=== PATIENT | male | born 1995 | race Caucasian/White ===

== ENCOUNTER 2020-04-10 11:22 | Inpatient (IN) | payer MEDICAID, OTHER ==
[~2020-04-10] VITALS: Ht 170.2 cm; Wt 60.3 kg
[2020-04-10 11:52] LABS: BASOPHILS % (AUTO) 0.4 % (0.0-2.0); EOSINOPHILS % (AUTO) 0.4 % (1.0-6.0); HEMOGLOBIN 13.6 g/dL (13.5-17.5); LYMPHOCYTES # (AUTO) 2.2 K/uL (1.0-4.8); LYMPHOCYTES % (AUTO) 32.1 % (22.0-44.0); MEAN CORPUSCULAR HEMOGLOBIN 29.9 pg (26.0-34.0); MEAN CORPUSCULAR VOLUME 88 fL (80-100); MONOCYTES # (AUTO) 0.6 K/uL (0.1-1.0); MONOCYTES % (AUTO) 9.2 % (2.0-9.0); NEUTROPHILS % (AUTO) 57.9 % (40.0-70.0); PLATELET COUNT (AUTO) 293 K/uL (150-450); RED BLOOD CELL COUNT(AUTO) 4.54 MIL/uL (4.50-5.90); RED CELL DISTRIBUTION WIDTH 14.1 % (11.5-14.5)
[2020-04-10 11:57] LABS: ANION GAP 10 mmol/L (8-16); CALCIUM, TOTAL 9.6 mg/dL (8.8-10.5); CARBON DIOXIDE 28 mmol/L (22-29); CHLORIDE 101 mmol/L (98-107); GLOMERULAR FILTR. RATE CALC > 60 mL/min (>60); GLUCOSE,RANDOM 108 mg/dL (70-110); POTASSIUM 3.7 mmol/L (3.5-5.1); SODIUM SERUM 139 mmol/L (136-145); UREA NITROGEN, BLOOD 14 mg/dL (7-18)
[2020-04-10 12:02] LABS: ALANINE AMINOTRANSFERASE 24 U/L (12-78); ALBUMIN 4.5 g/dL (3.4-5.0); ALKALINE PHOSPHATASE 58 U/L (46-116); ASPARTATE AMINOTRANSFERASE 18 U/L (15-37); BILIRUBIN,TOTAL 0.6 mg/dL (0.1-1.0); TOTAL PROTEIN, SERUM 8.6 g/dL (6.4-8.2)
[2020-04-10 12:28] LABS: AMPHET/METH SCREEN,URINE NEGATIVE (NEGATIVE); BARBITURATE SCREEN, URINE NEGATIVE (NEGATIVE); BENZODIAZEPINES SCREEN,URINE NEGATIVE (NEGATIVE); CANNABINOID SCREEN,URINE POSITIVE (NEGATIVE); COCAINE SCREEN,URINE NEGATIVE (NEGATIVE); METHADONE SCREEN, URINE NEGATIVE (NEGATIVE); OPIATE SCREEN,URINE NEGATIVE (NEGATIVE)
[2020-04-10 12:31] LABS: PHENCYCLIDINE SCREEN,URINE NEGATIVE (NEGATIVE)
[2020-04-10] MEDS ORDERED: HALOPERIDOL 5 MG TABLET PO PRN (13:15)
[2020-04-10] MEDS ORDERED: LORazepam 2 MG TABLET PO PRN (13:15)
[2020-04-10 18:10] VITALS: BP 101/51
[2020-04-11 05:43] VITALS: BP 112/71
[2020-04-11] MEDS ORDERED: BACITRACIN 28.4 GM OINTMENT TP PRN (06:45)
[2020-04-11] MEDS ORDERED: MAG HYDROX/AL HYDROX/SIMETH ES 30 ML SUSPENSION UDCUP PO PRN (06:45)
[2020-04-11] MEDS ORDERED: ALBUTEROL SULFATE HFA 90 MCG/PUFF 8 GM INHALER IH PRN (06:45)
[2020-04-11] MEDS ORDERED: OMEPRAZOLE 20 MG CAPSULE PO PRN (06:45)
[2020-04-11] MEDS ORDERED: MAGNESIUM HYDROXIDE SUSPENSION 30 ML UDCUP PO PRN (06:45)
[2020-04-11] MEDS ORDERED: ACETAMINOPHEN 325 MG TABLET PO PRN (06:45)
[2020-04-11] MEDS ORDERED: PETROLATUM,WHITE 28 GM JELLY TP PRN (06:45)
[2020-04-11] MEDS ORDERED: DOCUSATE SODIUM 100 MG CAPSULE PO PRN (06:45)
[2020-04-11] MEDS ORDERED: LOPERAMIDE HCL 2 MG CAPSULE PO PRN (06:45)
[2020-04-11] MEDS ORDERED: IBUPROFEN 600 MG TABLET PO PRN (06:45)
[2020-04-11] MEDS ORDERED: BENZOCAINE/MENTHOL LOZENGE MM PRN (06:45)
[2020-04-11] MEDS ORDERED: ONDANSETRON HCL 4 MG TABLET PO PRN (06:45)
[2020-04-11] MEDS ORDERED: CloNIDine HCL 0.1 MG TABLET PO PRN (06:45)
[2020-04-11 08:26] LABS: CHOL/HDL RATIO 2.6 (4.2-7.3)
[2020-04-11 08:30] VITALS: BP 130/72
[2020-04-11 16:17] VITALS: BP 139/72
[2020-04-11] MEDS ORDERED: RisperiDONE 2 MG TABLET PO SCH (17:00)
[2020-04-11] MEDS: LURASIDONE HCL 60 MG TABLET PO SCH (20:56)
[2020-04-11] MEDS: ZOLPIDEM TARTRATE 10 MG TABLET PO PRN (22:22)
[2020-04-12 05:56] VITALS: BP 128/75
[2020-04-12 08:24] VITALS: BP 132/70
[2020-04-12 16:10] VITALS: BP 118/80
[2020-04-12] MEDS: ZOLPIDEM TARTRATE 10 MG TABLET PO PRN (20:41)
[2020-04-12] MEDS: LURASIDONE HCL 60 MG TABLET PO SCH (20:41)
[2020-04-13 05:30] VITALS: BP 119/79
[2020-04-13 08:24] VITALS: BP 123/62
[2020-04-13 16:11] VITALS: BP 129/76
[2020-04-13] MEDS: LURASIDONE HCL 60 MG TABLET PO SCH (20:44)
[2020-04-13] MEDS: ZOLPIDEM TARTRATE 10 MG TABLET PO PRN (20:47)
[2020-04-14 04:22] VITALS: BP 133/78
[2020-04-14 08:22] VITALS: BP 124/71
[2020-04-14] MEDS ORDERED: LURA60TA PO (14:08)
== END 2020-04-14 16:45 | disposition home or self-care (01) | DRG 885 ==
LOC: EMS 11:26 → B2S 16:24 → B3A 18:30
PROVIDERS: ADMIT Psychiatry & Neurology Psychiatry; ATTEND Psychiatry & Neurology Psychiatry
DX: F25.1 Schizoaffective disorder, depressive type (principal); F12.90 Cannabis use, unspecified, uncomplicated; F17.210 Nicotine dependence, cigarettes, uncomplicated; F41.9 Anxiety disorder, unspecified; G47.00 Insomnia, unspecified; K59.00 Constipation, unspecified; Z79.899 Other long term (current) drug therapy
CPT/HCPCS: 87081; G0480

== ENCOUNTER 2020-04-23 22:15 | Inpatient (IN) | payer MEDICAID ==
[~2020-04-23] VITALS: Ht 167.6 cm; Wt 59.9 kg
[~2020-04-23 22:15] MED LIST: LURA60TA PO
[2020-04-23 23:00] VITALS: BP 111/63
[2020-04-24 00:17] VITALS: BP 130/77
[2020-04-24] MEDS: ZOLPIDEM TARTRATE 10 MG TABLET PO PRN ×2 (00:55→22:07)
[2020-04-24 04:42] VITALS: BP 119/76
[2020-04-24] MEDS: LORazepam 2 MG TABLET PO PRN ×2 (04:43→17:41)
[2020-04-24] MEDS ORDERED: LOPERAMIDE HCL 2 MG CAPSULE PO PRN (06:45)
[2020-04-24] MEDS ORDERED: ALBUTEROL SULFATE HFA 90 MCG/PUFF 8 GM INHALER IH PRN (06:45)
[2020-04-24] MEDS ORDERED: ONDANSETRON HCL 4 MG TABLET PO PRN (06:45)
[2020-04-24] MEDS ORDERED: BENZOCAINE/MENTHOL LOZENGE MM PRN (06:45)
[2020-04-24] MEDS ORDERED: PETROLATUM,WHITE 28 GM JELLY TP PRN (06:45)
[2020-04-24] MEDS ORDERED: BACITRACIN 28.4 GM OINTMENT TP PRN (06:45)
[2020-04-24] MEDS ORDERED: CloNIDine HCL 0.1 MG TABLET PO PRN (06:45)
[2020-04-24] MEDS ORDERED: OMEPRAZOLE 20 MG CAPSULE PO PRN (06:45)
[2020-04-24] MEDS ORDERED: MAG HYDROX/AL HYDROX/SIMETH ES 30 ML SUSPENSION UDCUP PO PRN (06:45)
[2020-04-24] MEDS ORDERED: ACETAMINOPHEN 325 MG TABLET PO PRN (06:45)
[2020-04-24] MEDS ORDERED: MAGNESIUM HYDROXIDE SUSPENSION 30 ML UDCUP PO PRN (06:45)
[2020-04-24] MEDS ORDERED: DOCUSATE SODIUM 100 MG CAPSULE PO PRN (06:45)
[2020-04-24 09:46] VITALS: BP 114/68
[2020-04-24 16:32] VITALS: BP 118/75
[2020-04-24] MEDS: LURASIDONE HCL 80 MG TABLET PO SCH (20:32)
[2020-04-24] MEDS ORDERED: LURASIDONE HCL 60 MG TABLET PO SCH (21:00)
[2020-04-25 00:13] VITALS: BP 120/76
[2020-04-25] MEDS: LORazepam 2 MG TABLET PO PRN ×2 (00:28→22:08)
[2020-04-25 07:53] LABS: BASOPHILS % (AUTO) 0.4 % (0.0-2.0); EOSINOPHILS % (AUTO) 0.3 % (1.0-6.0); HEMATOCRIT 40.8 % (41-53); HEMOGLOBIN 13.7 g/dL (13.5-17.5); LYMPHOCYTES # (AUTO) 1.4 K/uL (1.0-4.8); LYMPHOCYTES % (AUTO) 38.7 % (22.0-44.0); MEAN CORPUSCULAR HGB CONC 33.5 G/dL (31.0-37.0); MEAN CORPUSCULAR VOLUME 89 fL (80-100); MONOCYTES # (AUTO) 0.4 K/uL (0.1-1.0); MONOCYTES % (AUTO) 12.7 % (2.0-9.0); NEUTROPHILS # (AUTO) 1.7 K/uL (1.8-7.7); NEUTROPHILS % (AUTO) 47.9 % (40.0-70.0); PLATELET COUNT (AUTO) 281 K/uL (150-450); RED BLOOD CELL COUNT(AUTO) 4.57 MIL/uL (4.50-5.90); RED CELL DISTRIBUTION WIDTH 14.8 % (11.5-14.5)
[2020-04-25 08:20] LABS: ALANINE AMINOTRANSFERASE 29 U/L (12-78); ALBUMIN 4.4 g/dL (3.4-5.0); ALKALINE PHOSPHATASE 47 U/L (46-116); ANION GAP 6 mmol/L (8-16); ASPARTATE AMINOTRANSFERASE 19 U/L (15-37); BILIRUBIN,TOTAL 0.5 mg/dL (0.1-1.0); CALCIUM, TOTAL 9.9 mg/dL (8.8-10.5); CARBON DIOXIDE 29 mmol/L (22-29); CHLORIDE 102 mmol/L (98-107); CHOLESTEROL 127 mg/dL (131-200); CREATININE 1.14 mg/dL (0.60-1.30); GLOMERULAR FILTR. RATE CALC > 60 mL/min (>60); GLUCOSE,RANDOM 95 mg/dL (70-110); HDL CHOLESTEROL 64 mg/dL (40-60); HEMOGLOBIN A1C 5.6 % (3.8-5.6); LDL CHOL (CALC.) 54 mg/dL (0-130); SODIUM SERUM 137 mmol/L (136-145); THYROID STIMULATING HORMONE 1.82 uIU/mL (0.36-3.74); TOTAL PROTEIN, SERUM 8.3 g/dL (6.4-8.2); TRIGLYCERIDES 44 mg/dL (15-150); UREA NITROGEN, BLOOD 14 mg/dL (7-18)
[2020-04-25 09:49] VITALS: BP 130/67
[2020-04-25] MEDS: LURASIDONE HCL 80 MG TABLET PO SCH (20:12)
[2020-04-25] MEDS: ZOLPIDEM TARTRATE 10 MG TABLET PO PRN (20:13)
[2020-04-25 21:48] VITALS: BP 133/72
[2020-04-26 01:38] VITALS: BP 122/70
[2020-04-26 08:17] VITALS: BP 133/75
[2020-04-26] MEDS: LORazepam 2 MG TABLET PO PRN ×2 (12:42→17:10)
[2020-04-26] MEDS: HALOPERIDOL 5 MG TABLET PO PRN (12:42)
[2020-04-26 16:27] VITALS: BP 127/79
[2020-04-26] MEDS: LURASIDONE HCL 80 MG TABLET PO SCH (20:57)
[2020-04-26] MEDS: ZOLPIDEM TARTRATE 10 MG TABLET PO PRN (20:57)
[2020-04-27 02:20] VITALS: BP 122/77
[2020-04-27] MEDS: HALOPERIDOL 5 MG TABLET PO PRN (05:48)
[2020-04-27] MEDS: LORazepam 2 MG TABLET PO PRN (05:48)
[2020-04-27 08:34] VITALS: BP 119/73
[2020-04-27] MEDS: IBUPROFEN 600 MG TABLET PO PRN (13:37)
[2020-04-27 13:38] VITALS: BP 130/78
[2020-04-27 14:32] VITALS: BP 126/72
[2020-04-27 16:10] VITALS: BP 114/70
[2020-04-27] MEDS: LURASIDONE HCL 80 MG TABLET PO SCH (20:43)
[2020-04-27] MEDS: ZOLPIDEM TARTRATE 10 MG TABLET PO PRN (20:46)
[2020-04-28 00:41] VITALS: BP 118/76
[2020-04-28] MEDS: LORazepam 2 MG TABLET PO PRN ×4 (02:30→23:46)
[2020-04-28] MEDS: HALOPERIDOL 5 MG TABLET PO PRN ×2 (02:30→23:46)
[2020-04-28] MEDS: IBUPROFEN 600 MG TABLET PO PRN (05:06)
[2020-04-28 08:37] VITALS: BP 122/63
[2020-04-28 09:54] LABS: BILIRUBIN,URINE NEGATIVE (NEGATIVE); GLUCOSE, URINE (UA) NEGATIVE (NEGATIVE); KETONES,URINE NEGATIVE (NEGATIVE); LEUKOCYTE ESTERASE ,URINE NEGATIVE (NEGATIVE); NITRATE,URINE NEGATIVE (NEGATIVE); OCCULT BLOOD,URINE NEGATIVE (NEGATIVE); PH,URINE 6.5 (5.0-8.0); PROTEIN,URINE POS 1+ (NEGATIVE)
[2020-04-28 10:00] LABS: AMPHET/METH SCREEN,URINE NEGATIVE (NEGATIVE); BARBITURATE SCREEN, URINE NEGATIVE (NEGATIVE); BENZODIAZEPINES SCREEN,URINE NEGATIVE (NEGATIVE); CANNABINOID SCREEN,URINE POSITIVE (NEGATIVE); COCAINE SCREEN,URINE NEGATIVE (NEGATIVE); METHADONE SCREEN, URINE NEGATIVE (NEGATIVE); OPIATE SCREEN,URINE NEGATIVE (NEGATIVE); PHENCYCLIDINE SCREEN,URINE NEGATIVE (NEGATIVE)
[2020-04-28 10:14] LABS: APPEARANCE,URINE SLIGHTLY CLOUDY (CLEAR)
[2020-04-28 10:21] LABS: BACTERIA,URINE None Seen /HPF (None Seen); RBC,URINE 0-2 /HPF (0-2); WBC,URINE 0-2 /HPF (0-5)
[2020-04-28 10:22] LABS: CALCIUM OXALATE CRYSTALS,UR Moderate /LPF (None Seen)
[2020-04-28 16:30] VITALS: BP 127/72
[2020-04-28] MEDS: LURASIDONE HCL 80 MG TABLET PO SCH (20:00)
[2020-04-28] MEDS: ZOLPIDEM TARTRATE 10 MG TABLET PO PRN (20:00)
[2020-04-29 01:08] VITALS: BP 122/75
[2020-04-29] MEDS: IBUPROFEN 600 MG TABLET PO PRN (06:45)
[2020-04-29 08:22] VITALS: BP 116/68
[2020-04-29] MEDS: LORazepam 2 MG TABLET PO PRN ×2 (09:16→18:06)
[2020-04-29 16:19] VITALS: BP 121/73
[2020-04-29] MEDS: HALOPERIDOL 5 MG TABLET PO PRN (18:06)
[2020-04-29] MEDS: LURASIDONE HCL 80 MG TABLET PO SCH (20:41)
[2020-04-29] MEDS: ZOLPIDEM TARTRATE 10 MG TABLET PO PRN (20:41)
[2020-04-30 02:24] VITALS: BP 118/70
[2020-04-30 08:06] VITALS: BP 122/76
[2020-04-30] MEDS: LORazepam 2 MG TABLET PO PRN (08:26)
[2020-04-30] MEDS: HALOPERIDOL 5 MG TABLET PO PRN (12:02)
[2020-04-30] MEDS ORDERED: LURA60TA PO (12:18)
== END 2020-04-30 15:15 | disposition home or self-care (01) | DRG 885 ==
LOC: B2S 22:38 → B3A 04-25 16:56
PROVIDERS: ADMIT Psychiatry & Neurology Psychiatry; ATTEND Psychiatry & Neurology Psychiatry
DX: F20.0 Paranoid schizophrenia (principal); F12.90 Cannabis use, unspecified, uncomplicated; G47.00 Insomnia, unspecified; K59.00 Constipation, unspecified; Z91.14 Patient's other noncompliance with medication regimen
CPT/HCPCS: 80307; 83036; 84439; 84443; 87081

== ENCOUNTER 2020-05-01 11:25 | Emergency (ER) | payer MEDICAID, OTHER ==
[~2020-05-01] VITALS: Ht 177.8 cm; Wt 70.5 kg
[2020-05-01 12:00] LABS: BASOPHILS % (AUTO) 0.2 % (0.0-2.0); EOSINOPHILS % (AUTO) 0 % (1.0-6.0); HEMATOCRIT 40.6 % (41-53); HEMOGLOBIN 13.5 g/dL (13.5-17.5); LYMPHOCYTES # (AUTO) 0.9 K/uL (1.0-4.8); LYMPHOCYTES % (AUTO) 10.7 % (22.0-44.0); MEAN CORPUSCULAR HEMOGLOBIN 29.5 pg (26.0-34.0); MEAN CORPUSCULAR HGB CONC 33.2 G/dL (31.0-37.0); MEAN CORPUSCULAR VOLUME 89 fL (80-100); MONOCYTES # (AUTO) 0.6 K/uL (0.1-1.0); MONOCYTES % (AUTO) 7.1 % (2.0-9.0); NEUTROPHILS # (AUTO) 7.1 K/uL (1.8-7.7); PLATELET COUNT (AUTO) 290 K/uL (150-450); RED BLOOD CELL COUNT(AUTO) 4.57 MIL/uL (4.50-5.90); RED CELL DISTRIBUTION WIDTH 14.4 % (11.5-14.5)
[2020-05-01] MEDS ORDERED: LORazepam 1 MG TABLET PO ONE (12:00)
[2020-05-01 12:08] LABS: ANION GAP 8 mmol/L (8-16); CALCIUM, TOTAL 9.8 mg/dL (8.8-10.5); CARBON DIOXIDE 29 mmol/L (22-29); CHLORIDE 101 mmol/L (98-107); CREATININE 1.32 mg/dL (0.60-1.30); GLOMERULAR FILTR. RATE CALC > 60 mL/min (>60); GLUCOSE,RANDOM 114 mg/dL (70-110); POTASSIUM 4.8 mmol/L (3.5-5.1); SODIUM SERUM 138 mmol/L (136-145); UREA NITROGEN, BLOOD 24 mg/dL (7-18)
[2020-05-01 12:15] LABS: ALANINE AMINOTRANSFERASE 37 U/L (12-78); ALBUMIN 4.8 g/dL (3.4-5.0); ALKALINE PHOSPHATASE 43 U/L (46-116); ASPARTATE AMINOTRANSFERASE 25 U/L (15-37); BILIRUBIN,TOTAL 0.2 mg/dL (0.1-1.0); TOTAL PROTEIN, SERUM 8.3 g/dL (6.4-8.2)
[2020-05-01] MEDS ORDERED: LURASIDONE HCL 60 MG TABLET PO ONE (13:00)
[2020-05-01 13:44] LABS: AMPHET/METH SCREEN,URINE NEGATIVE (NEGATIVE); BARBITURATE SCREEN, URINE NEGATIVE (NEGATIVE); BENZODIAZEPINES SCREEN,URINE NEGATIVE (NEGATIVE); CANNABINOID SCREEN,URINE POSITIVE (NEGATIVE); COCAINE SCREEN,URINE NEGATIVE (NEGATIVE); METHADONE SCREEN, URINE NEGATIVE (NEGATIVE); OPIATE SCREEN,URINE NEGATIVE (NEGATIVE)
[2020-05-01 15:31] LABS: PHENCYCLIDINE SCREEN,URINE NEGATIVE (NEGATIVE)
[2020-05-01 16:48] VITALS: BP 113/81
== END 2020-05-01 16:54 | disposition home or self-care (01) ==
LOC: EMS 11:33
DX: F41.9 Anxiety disorder, unspecified (principal); F20.9 Schizophrenia, unspecified; F17.210 Nicotine dependence, cigarettes, uncomplicated
CPT/HCPCS: 36415; 80053; 80307; 85025; 99283; G0480

== ENCOUNTER 2020-06-24 00:35 | Inpatient (IN) | payer MEDICAID, OTHER ==
[~2020-06-24] VITALS: Ht 170.2 cm; Wt 68.0 kg
[2020-06-24] MEDS ORDERED: ARIP10TA8 PO (01:19)
[2020-06-24] MEDS ORDERED: DIVA-112 PO (01:19)
[2020-06-24 02:02] LABS: BASOPHILS % (AUTO) 0.3 % (0.0-2.0); HEMATOCRIT 34.1 % (41-53); HEMOGLOBIN 11.3 g/dL (13.5-17.5); LYMPHOCYTES # (AUTO) 1.3 K/uL (1.0-4.8); LYMPHOCYTES % (AUTO) 19.5 % (22.0-44.0); MEAN CORPUSCULAR VOLUME 88 fL (80-100); MONOCYTES # (AUTO) 0.9 K/uL (0.1-1.0); MONOCYTES % (AUTO) 13.7 % (2.0-9.0); NEUTROPHILS # (AUTO) 4.4 K/uL (1.8-7.7); NEUTROPHILS % (AUTO) 65.5 % (40.0-70.0); PLATELET COUNT (AUTO) 217 K/uL (150-450); RED BLOOD CELL COUNT(AUTO) 3.89 MIL/uL (4.50-5.90)
[2020-06-24 02:05] LABS: ANION GAP 3 mmol/L (8-16); CALCIUM, TOTAL 9.5 mg/dL (8.8-10.5); CARBON DIOXIDE 32 mmol/L (22-29); CHLORIDE 104 mmol/L (98-107); CREATININE 1.23 mg/dL (0.60-1.30); GLOMERULAR FILTR. RATE CALC > 60 mL/min (>60); GLUCOSE,RANDOM 136 mg/dL (70-110); POTASSIUM 3.6 mmol/L (3.5-5.1); SODIUM SERUM 139 mmol/L (136-145); UREA NITROGEN, BLOOD 15 mg/dL (7-18)
[2020-06-24 02:11] LABS: ALANINE AMINOTRANSFERASE 21 U/L (12-78); ALBUMIN 3.6 g/dL (3.4-5.0); ALKALINE PHOSPHATASE 34 U/L (46-116); ASPARTATE AMINOTRANSFERASE 15 U/L (15-37); TOTAL PROTEIN, SERUM 6.6 g/dL (6.4-8.2)
[2020-06-24 02:12] LABS: ACETAMINOPHEN < 2 mcg/mL (10-30)
[2020-06-24 02:23] LABS: BILIRUBIN,TOTAL 0.1 mg/dL (0.1-1.0)
[2020-06-24 02:26] LABS: SALICYLATE < 2.8 mg/dL (2.8-20.0)
[2020-06-24] MEDS ORDERED: ZOLPIDEM TARTRATE 10 MG TABLET PO PRN (03:00)
[2020-06-24] MEDS ORDERED: HALOPERIDOL 5 MG TABLET PO PRN (03:00)
[2020-06-24] MEDS: LORazepam 2 MG TABLET PO PRN ×2 (03:36→13:17)
[2020-06-24 04:04] LABS: COVID AG,FIA SOURCE NASOPHARYNGEAL
[2020-06-24 04:15] LABS: APPEARANCE,URINE CLOUDY (CLEAR); BILIRUBIN,URINE NEGATIVE (NEGATIVE); GLUCOSE, URINE (UA) NEGATIVE (NEGATIVE); KETONES,URINE NEGATIVE (NEGATIVE); LEUKOCYTE ESTERASE ,URINE NEGATIVE (NEGATIVE); NITRATE,URINE NEGATIVE (NEGATIVE); OCCULT BLOOD,URINE NEGATIVE (NEGATIVE); PH,URINE 6.5 (5.0-8.0); PROTEIN,URINE NEGATIVE (NEGATIVE); UROBILINOGEN,URINE 0.2 mg/dL (<=1.0)
[2020-06-24 04:20] LABS: AMPHET/METH SCREEN,URINE NEGATIVE (NEGATIVE); BARBITURATE SCREEN, URINE NEGATIVE (NEGATIVE); BENZODIAZEPINES SCREEN,URINE NEGATIVE (NEGATIVE); CANNABINOID SCREEN,URINE POSITIVE (NEGATIVE); COCAINE SCREEN,URINE NEGATIVE (NEGATIVE); METHADONE SCREEN, URINE NEGATIVE (NEGATIVE); OPIATE SCREEN,URINE NEGATIVE (NEGATIVE)
[2020-06-24 04:21] LABS: PHENCYCLIDINE SCREEN,URINE NEGATIVE (NEGATIVE)
[2020-06-24 20:23] VITALS: BP 134/84
[2020-06-24] MEDS ORDERED: ACETAMINOPHEN 325 MG TABLET PO PRN (21:15)
[2020-06-24] MEDS ORDERED: LOPERAMIDE HCL 2 MG CAPSULE PO PRN (21:15)
[2020-06-24] MEDS ORDERED: PETROLATUM,WHITE 28 GM JELLY TP PRN (21:15)
[2020-06-24] MEDS ORDERED: OMEPRAZOLE 20 MG CAPSULE PO PRN (21:15)
[2020-06-24] MEDS ORDERED: ALBUTEROL SULFATE HFA 90 MCG/PUFF 8 GM INHALER IH PRN (21:15)
[2020-06-24] MEDS ORDERED: MAG HYDROX/AL HYDROX/SIMETH ES 30 ML SUSPENSION UDCUP PO PRN (21:15)
[2020-06-24] MEDS ORDERED: ONDANSETRON HCL 4 MG TABLET PO PRN (21:15)
[2020-06-24] MEDS ORDERED: MAGNESIUM HYDROXIDE SUSPENSION 30 ML UDCUP PO PRN (21:15)
[2020-06-24] MEDS ORDERED: BENZOCAINE/MENTHOL LOZENGE PO PRN (21:15)
[2020-06-24] MEDS ORDERED: CloNIDine HCL 0.1 MG TABLET PO PRN (21:15)
[2020-06-24] MEDS ORDERED: IBUPROFEN 600 MG TABLET PO PRN (21:15)
[2020-06-24] MEDS ORDERED: BACITRACIN 28 GM OINTMENT TP PRN (21:15)
[2020-06-24] MEDS ORDERED: DOCUSATE SODIUM 100 MG CAPSULE PO PRN (21:15)
[2020-06-25 00:45] VITALS: BP 103/65
[2020-06-25] MEDS: LORazepam 2 MG TABLET PO PRN ×2 (05:46→11:05)
[2020-06-25 08:13] VITALS: BP 130/80
[2020-06-25 08:44] LABS: CHOL/HDL RATIO 2.7 (4.2-7.3)
[2020-06-25 19:07] VITALS: BP 116/73
== END 2020-06-25 17:20 | disposition home or self-care (01) | DRG 750 ==
LOC: EMS 00:35 → B2S 16:26
PROVIDERS: ADMIT Psychiatry & Neurology Psychiatry; ATTEND Psychiatry & Neurology Psychiatry
DX: F25.9 Schizoaffective disorder, unspecified (principal); F12.90 Cannabis use, unspecified, uncomplicated; F41.9 Anxiety disorder, unspecified; G47.00 Insomnia, unspecified; F17.210 Nicotine dependence, cigarettes, uncomplicated; K59.00 Constipation, unspecified; R45.851 Suicidal ideations; F90.9 Attention-deficit hyperactivity disorder, unspecified type; Z88.8 Allergy status to other drugs, medicaments and biological substances; Z79.899 Other long term (current) drug therapy; Z71.6 Tobacco abuse counseling; Z71.51 Drug abuse counseling and surveillance of drug abuser; Z03.818 Encounter for observation for suspected exposure to other biological agents ruled out
CPT/HCPCS: 87426; G0480; G0481

== ENCOUNTER 2020-07-10 15:41 | Inpatient (IN) | payer MEDICAID, OTHER ==
[~2020-07-10] VITALS: Ht 170.2 cm; Wt 69.0 kg
[2020-07-10] MEDS ORDERED: LORazepam 2 MG/ML VIAL IVP ONE (16:15)
[2020-07-10] MEDS ORDERED: SODIUM CHLORIDE 0.9% 1,000 ML IV ONE (16:15)
[2020-07-10] MEDS ORDERED: DiphenhydrAMINE HCL 50 MG/ML VIAL IVP ONE (16:15)
[2020-07-10 16:54] LABS: BASOPHILS % (AUTO) 0.4 % (0.0-2.0); EOSINOPHILS % (AUTO) 0.9 % (1.0-6.0); HEMATOCRIT 40.3 % (41-53); HEMOGLOBIN 13.4 g/dL (13.5-17.5); LYMPHOCYTES # (AUTO) 1.3 K/uL (1.0-4.8); MEAN CORPUSCULAR HEMOGLOBIN 28.7 pg (26.0-34.0); MEAN CORPUSCULAR HGB CONC 33.1 G/dL (31.0-37.0); MEAN CORPUSCULAR VOLUME 87 fL (80-100); MONOCYTES # (AUTO) 0.7 K/uL (0.1-1.0); MONOCYTES % (AUTO) 8.7 % (2.0-9.0); NEUTROPHILS # (AUTO) 6.3 K/uL (1.8-7.7); PLATELET COUNT (AUTO) 229 K/uL (150-450); RED BLOOD CELL COUNT(AUTO) 4.66 MIL/uL (4.50-5.90); RED CELL DISTRIBUTION WIDTH 14.7 % (11.5-14.5)
[2020-07-10 17:07] LABS: ANION GAP 7 mmol/L (8-16); CALCIUM, TOTAL 9.5 mg/dL (8.8-10.5); CARBON DIOXIDE 27 mmol/L (22-29); CHLORIDE 105 mmol/L (98-107); CREATININE 1.08 mg/dL (0.60-1.30); GLOMERULAR FILTR. RATE CALC > 60 mL/min (>60); GLUCOSE,RANDOM 126 mg/dL (70-110); SODIUM SERUM 139 mmol/L (136-145); UREA NITROGEN, BLOOD 19 mg/dL (7-18)
[2020-07-10 17:15] LABS: ALANINE AMINOTRANSFERASE 20 U/L (12-78); ALBUMIN 4.1 g/dL (3.4-5.0); ALKALINE PHOSPHATASE 49 U/L (46-116); ASPARTATE AMINOTRANSFERASE 15 U/L (15-37); BILIRUBIN,TOTAL 0.1 mg/dL (0.1-1.0); TOTAL PROTEIN, SERUM 7.7 g/dL (6.4-8.2)
[2020-07-10 17:47] LABS: AMPHET/METH SCREEN,URINE NEGATIVE (NEGATIVE); BARBITURATE SCREEN, URINE NEGATIVE (NEGATIVE); BENZODIAZEPINES SCREEN,URINE NEGATIVE (NEGATIVE); CANNABINOID SCREEN,URINE POSITIVE (NEGATIVE); COCAINE SCREEN,URINE NEGATIVE (NEGATIVE); METHADONE SCREEN, URINE NEGATIVE (NEGATIVE); OPIATE SCREEN,URINE NEGATIVE (NEGATIVE); PHENCYCLIDINE SCREEN,URINE NEGATIVE (NEGATIVE)
[2020-07-10] MEDS ORDERED: HALOPERIDOL 5 MG TABLET PO PRN (18:30)
[2020-07-10 20:14] LABS: COVID AG,FIA SOURCE NASOPHARYNGEAL
[2020-07-11 00:57] VITALS: BP 140/76
[2020-07-11] MEDS ORDERED: INFLUENZA VIRUS VACCINE QVS 2020-21 (6MO+)/PF 60 MCG/0.5 ML SYRINGE IM ONE (01:30)
[2020-07-11] MEDS: LORazepam 2 MG TABLET PO PRN ×3 (02:28→20:06)
[2020-07-11] MEDS ORDERED: PETROLATUM,WHITE 28 GM JELLY TP PRN (07:30)
[2020-07-11] MEDS ORDERED: BENZOCAINE/MENTHOL LOZENGE PO PRN (07:30)
[2020-07-11] MEDS ORDERED: MAG HYDROX/AL HYDROX/SIMETH ES 30 ML SUSPENSION UDCUP PO PRN (07:30)
[2020-07-11] MEDS ORDERED: ACETAMINOPHEN 325 MG TABLET PO PRN (07:30)
[2020-07-11] MEDS ORDERED: CloNIDine HCL 0.1 MG TABLET PO PRN (07:30)
[2020-07-11] MEDS ORDERED: OMEPRAZOLE 20 MG CAPSULE PO PRN (07:30)
[2020-07-11] MEDS ORDERED: LOPERAMIDE HCL 2 MG CAPSULE PO PRN (07:30)
[2020-07-11] MEDS ORDERED: ONDANSETRON HCL 4 MG TABLET PO PRN (07:30)
[2020-07-11] MEDS ORDERED: MAGNESIUM HYDROXIDE SUSPENSION 30 ML UDCUP PO PRN (07:30)
[2020-07-11] MEDS ORDERED: IBUPROFEN 600 MG TABLET PO PRN (07:30)
[2020-07-11] MEDS ORDERED: DOCUSATE SODIUM 100 MG CAPSULE PO PRN (07:30)
[2020-07-11] MEDS ORDERED: BACITRACIN 28 GM OINTMENT TP PRN (07:30)
[2020-07-11] MEDS ORDERED: ALBUTEROL SULFATE HFA 90 MCG/PUFF 8 GM INHALER IH PRN (07:30)
[2020-07-11 08:08] VITALS: BP 104/57
[2020-07-11 16:13] VITALS: BP 130/71
[2020-07-12 05:18] VITALS: BP 115/68
[2020-07-12] MEDS: RisperiDONE 1 MG TABLET PO SCH ×2 (08:35→16:36)
[2020-07-12 09:04] VITALS: BP 120/59
[2020-07-12] MEDS: LORazepam 2 MG TABLET PO PRN ×2 (11:18→17:53)
[2020-07-12 16:13] VITALS: BP 104/53
[2020-07-12] MEDS: ZOLPIDEM TARTRATE 10 MG TABLET PO PRN ×2 (19:57→20:08)
[2020-07-13 06:25] VITALS: BP 115/71
[2020-07-13 08:21] VITALS: BP 131/87
[2020-07-13] MEDS: RisperiDONE 1 MG TABLET PO SCH (08:56)
[2020-07-13] MEDS: LORazepam 2 MG TABLET PO PRN (08:56)
[2020-07-13] MEDS ORDERED: RISP1TAB27 PO (12:27)
[2020-07-13 16:00] VITALS: BP 106/62
== END 2020-07-13 16:10 | disposition home or self-care (01) | DRG 750 ==
LOC: EMS 15:44 → B3A 18:20
PROVIDERS: ADMIT Psychiatry & Neurology Psychiatry; ATTEND Psychiatry & Neurology Psychiatry
DX: F25.9 Schizoaffective disorder, unspecified (principal); F41.9 Anxiety disorder, unspecified; R45.851 Suicidal ideations; K59.00 Constipation, unspecified; G47.00 Insomnia, unspecified; Z87.891 Personal history of nicotine dependence; F12.10 Cannabis abuse, uncomplicated; Z03.818 Encounter for observation for suspected exposure to other biological agents ruled out
CPT/HCPCS: 87081; 87426; G0480; J1200; J2060; J7030

== ENCOUNTER 2021-09-11 21:55 | Emergency (ER) | payer MEDICAID ==
[~2021-09-11] VITALS: Ht 170.2 cm; Wt 65.9 kg
[~2021-09-11 21:55] MED LIST changes: -LURA60TA PO; +RISP1TAB48 PO
[2021-09-11] MEDS ORDERED: OLAN10TA74 PO (22:33)
[2021-09-11 23:34] LABS: BASOPHILS % (AUTO) 0.3 % (0.0-2.0); EOSINOPHILS % (AUTO) 0.1 % (1.0-6.0); HEMATOCRIT 39.3 % (41-53); HEMOGLOBIN 13.3 g/dL (13.5-17.5); LYMPHOCYTES # (AUTO) 1.8 K/uL (1.0-4.8); LYMPHOCYTES % (AUTO) 32.2 % (22.0-44.0); MEAN CORPUSCULAR HEMOGLOBIN 29.1 pg (26.0-34.0); MEAN CORPUSCULAR HGB CONC 33.9 G/dL (31.0-37.0); MEAN CORPUSCULAR VOLUME 86 fL (80-100); MONOCYTES # (AUTO) 0.5 K/uL (0.1-1.0); MONOCYTES % (AUTO) 8.2 % (2.0-9.0); NEUTROPHILS # (AUTO) 3.3 K/uL (1.8-7.7); NEUTROPHILS % (AUTO) 59.2 % (40.0-70.0); PLATELET COUNT (AUTO) 281 K/uL (150-450); RED BLOOD CELL COUNT(AUTO) 4.58 MIL/uL (4.50-5.90); RED CELL DISTRIBUTION WIDTH 13.6 % (11.5-14.5)
[2021-09-11 23:37] LABS: ANION GAP 8 mmol/L (8-16); CARBON DIOXIDE 29 mmol/L (22-29); CHLORIDE 104 mmol/L (98-107); CREATININE 1.14 mg/dL (0.60-1.30); GLOMERULAR FILTR. RATE CALC > 60 mL/min (>60); GLUCOSE,RANDOM 111 mg/dL (70-110); POTASSIUM 3.6 mmol/L (3.5-5.1); SODIUM SERUM 141 mmol/L (136-145); UREA NITROGEN, BLOOD 15 mg/dL (7-18)
[2021-09-11 23:44] LABS: AMPHET/METH SCREEN,URINE NEGATIVE (NEGATIVE); BARBITURATE SCREEN, URINE NEGATIVE (NEGATIVE); BENZODIAZEPINES SCREEN,URINE NEGATIVE (NEGATIVE); CANNABINOID SCREEN,URINE POSITIVE (NEGATIVE); COCAINE SCREEN,URINE NEGATIVE (NEGATIVE); METHADONE SCREEN, URINE NEGATIVE (NEGATIVE); OPIATE SCREEN,URINE NEGATIVE (NEGATIVE); PHENCYCLIDINE SCREEN,URINE NEGATIVE (NEGATIVE)
[2021-09-11 23:44] LABS: ALANINE AMINOTRANSFERASE 24 U/L (12-78); ALBUMIN 4.1 g/dL (3.4-5.0); ALKALINE PHOSPHATASE 46 U/L (46-116); ASPARTATE AMINOTRANSFERASE 21 U/L (15-37); BILIRUBIN,TOTAL 0.3 mg/dL (0.1-1.0); TOTAL PROTEIN, SERUM 7.5 g/dL (6.4-8.2)
[2021-09-11 23:45] LABS: ACETAMINOPHEN < 2 mcg/mL (10-30)
[2021-09-12 00:30] VITALS: BP 121/88
[2021-09-12 01:21] LABS: COVID AG,FIA SOURCE NASOPHARYNGEAL
[2021-09-12 01:49] LABS: INFLUENZA TYPE A NEGATIVE FOR TYPE A (NEGATIVE); INFLUENZA TYPE B NEGATIVE FOR TYPE B (NEGATIVE)
== END 2021-09-12 00:57 | disposition home or self-care (01) ==
LOC: EMS 21:59
DX: R45.851 Suicidal ideations (principal); F17.210 Nicotine dependence, cigarettes, uncomplicated; F20.9 Schizophrenia, unspecified; F12.90 Cannabis use, unspecified, uncomplicated; F31.9 Bipolar disorder, unspecified; Z20.822 Contact with and (suspected) exposure to COVID-19
CPT/HCPCS: 36415; 80053; 80307; 85025; 87426; 87804; 99284; C9803; G0480; G0481

== ENCOUNTER 2021-09-20 12:13 | Inpatient (IN) | payer MEDICAID ==
[~2021-09-20] VITALS: Ht 172.7 cm; Wt 61.0 kg
[~2021-09-20 12:13] MED LIST changes: +OLAN10TA74 PO
[2021-09-20] MEDS ORDERED: LORazepam 2 MG/ML VIAL ONE (14:04)
[2021-09-20] MEDS ORDERED: DiphenhydrAMINE HCL 50 MG/ML VIAL ONE (14:04)
[2021-09-20] MEDS ORDERED: HALOPERIDOL LACTATE 5 MG/ML VIAL ONE (14:04)
[2021-09-20] MEDS ORDERED: LORazepam 2 MG/ML VIAL IM ONE (14:15)
[2021-09-20] MEDS ORDERED: HALOPERIDOL LACTATE 5 MG/ML VIAL IM ONE (14:15)
[2021-09-20] MEDS ORDERED: DiphenhydrAMINE HCL 50 MG/ML VIAL IM ONE (14:15)
[2021-09-20 14:25] LABS: AMPHET/METH SCREEN,URINE NEGATIVE (NEGATIVE); BARBITURATE SCREEN, URINE NEGATIVE (NEGATIVE); BENZODIAZEPINES SCREEN,URINE NEGATIVE (NEGATIVE); CANNABINOID SCREEN,URINE POSITIVE (NEGATIVE); COCAINE SCREEN,URINE NEGATIVE (NEGATIVE); METHADONE SCREEN, URINE NEGATIVE (NEGATIVE); OPIATE SCREEN,URINE NEGATIVE (NEGATIVE)
[2021-09-20 14:28] LABS: PHENCYCLIDINE SCREEN,URINE NEGATIVE (NEGATIVE)
[2021-09-20 14:29] LABS: COVID AG,FIA SOURCE NASOPHARYNGEAL
[2021-09-20 14:38] LABS: BASOPHILS % (AUTO) 0.4 % (0.0-2.0); EOSINOPHILS % (AUTO) 0.2 % (1.0-6.0); HEMOGLOBIN 12.7 g/dL (13.5-17.5); LYMPHOCYTES # (AUTO) 1.2 K/uL (1.0-4.8); LYMPHOCYTES % (AUTO) 24.9 % (22.0-44.0); MEAN CORPUSCULAR HEMOGLOBIN 28.7 pg (26.0-34.0); MEAN CORPUSCULAR HGB CONC 33.4 G/dL (31.0-37.0); MEAN CORPUSCULAR VOLUME 86 fL (80-100); MONOCYTES # (AUTO) 0.6 K/uL (0.1-1.0); MONOCYTES % (AUTO) 12.9 % (2.0-9.0); NEUTROPHILS # (AUTO) 2.9 K/uL (1.8-7.7); NEUTROPHILS % (AUTO) 61.6 % (40.0-70.0); PLATELET COUNT (AUTO) 241 K/uL (150-450); RED BLOOD CELL COUNT(AUTO) 4.43 MIL/uL (4.50-5.90); RED CELL DISTRIBUTION WIDTH 13.8 % (11.5-14.5)
[2021-09-20 14:50] LABS: ANION GAP 5 mmol/L (8-16); CARBON DIOXIDE 33 mmol/L (22-29); CHLORIDE 105 mmol/L (98-107); CREATININE 1.06 mg/dL (0.60-1.30); GLOMERULAR FILTR. RATE CALC > 60 mL/min (>60); GLUCOSE,RANDOM 110 mg/dL (70-110); POTASSIUM 4.1 mmol/L (3.5-5.1); SODIUM SERUM 143 mmol/L (136-145); UREA NITROGEN, BLOOD 10 mg/dL (7-18)
[2021-09-20 14:55] LABS: ALANINE AMINOTRANSFERASE 29 U/L (12-78); ALBUMIN 3.4 g/dL (3.4-5.0); ALKALINE PHOSPHATASE 47 U/L (46-116); ASPARTATE AMINOTRANSFERASE 26 U/L (15-37); BILIRUBIN,TOTAL 0.2 mg/dL (0.1-1.0); TOTAL PROTEIN, SERUM 6.6 g/dL (6.4-8.2)
[2021-09-20 15:46] LABS: APPEARANCE,URINE CLEAR (CLEAR); BILIRUBIN,URINE NEGATIVE (NEGATIVE); GLUCOSE, URINE (UA) NEGATIVE (NEGATIVE); KETONES,URINE NEGATIVE (NEGATIVE); LEUKOCYTE ESTERASE ,URINE NEGATIVE (NEGATIVE); NITRATE,URINE NEGATIVE (NEGATIVE); OCCULT BLOOD,URINE NEGATIVE (NEGATIVE); PROTEIN,URINE NEGATIVE (NEGATIVE); UROBILINOGEN,URINE 0.2 mg/dL (<=1.0)
[2021-09-21 01:13] LABS: CHOL/HDL RATIO 2.3 (4.2-7.3); CHOLESTEROL 105 mg/dL (131-200); FREE T4 (FREE THYROXINE) 0.92 ng/dL (0.76-1.46); HDL CHOLESTEROL 46 mg/dL (40-60); LDL CHOL (CALC.) 48 mg/dL (0-130); THYROID STIMULATING HORMONE 0.92 uIU/mL (0.36-3.74); TRIGLYCERIDES 57 mg/dL (15-150)
[2021-09-21] MEDS: ZOLPIDEM TARTRATE 10 MG TABLET PO PRN (02:47)
[2021-09-21] MEDS: LORazepam 2 MG TABLET PO PRN ×4 (09:14→22:25)
[2021-09-21] MEDS: OLANZapine 5 MG RAPDIS TABLET PO PRN ×3 (09:14→22:26)
[2021-09-21] MEDS ORDERED: ALBUTEROL SULFATE HFA 90 MCG/PUFF 8 GM INHALER IH PRN (12:30)
[2021-09-21] MEDS ORDERED: CloNIDine HCL 0.1 MG TABLET PO PRN (12:30)
[2021-09-21] MEDS ORDERED: DOCUSATE SODIUM 100 MG CAPSULE PO PRN (12:30)
[2021-09-21] MEDS ORDERED: ONDANSETRON HCL 4 MG TABLET PO PRN (12:30)
[2021-09-21] MEDS ORDERED: IBUPROFEN 400 MG TABLET PO PRN (12:30)
[2021-09-21] MEDS ORDERED: LOPERAMIDE HCL 2 MG CAPSULE PO PRN (12:30)
[2021-09-21] MEDS ORDERED: ACETAMINOPHEN 325 MG TABLET PO PRN (12:30)
[2021-09-21] MEDS ORDERED: GuaiFENesin/D-METHORPHAN [SUGAR-FREE] 200-20MG/10 ML SYRUP UDCUP PO PRN (12:30)
[2021-09-21] MEDS ORDERED: PETROLATUM,WHITE 28 GM JELLY TP PRN (12:30)
[2021-09-21] MEDS ORDERED: NICOTINE 14 MG/24 HOUR PATCH TD PRN (12:30)
[2021-09-21] MEDS ORDERED: MAG HYDROX/AL HYDROX/SIMETH ES 30 ML SUSPENSION UDCUP PO PRN (12:30)
[2021-09-21] MEDS ORDERED: MAGNESIUM HYDROXIDE SUSPENSION 30 ML UDCUP PO PRN (12:30)
[2021-09-22] MEDS: ZOLPIDEM TARTRATE 10 MG TABLET PO PRN ×2 (03:24→22:06)
[2021-09-22] MEDS: LORazepam 2 MG TABLET PO PRN ×2 (10:13→19:53)
[2021-09-22 16:00] VITALS: BP 124/76
[2021-09-22] MEDS: NICOTINE 14 MG/24 HOUR PATCH TD SCH (17:10)
[2021-09-22 19:53] VITALS: BP 133/65
[2021-09-22] MEDS: OLANZapine 5 MG RAPDIS TABLET PO PRN (19:53)
[2021-09-23 00:24] VITALS: BP 135/80
[2021-09-23] MEDS: LORazepam 2 MG TABLET PO PRN ×4 (00:24→19:26)
[2021-09-23] MEDS: OLANZapine 5 MG RAPDIS TABLET PO PRN (00:24)
[2021-09-23] MEDS: NICOTINE 14 MG/24 HOUR PATCH TD SCH (08:51)
[2021-09-23 12:51] VITALS: BP 121/75
[2021-09-23 16:00] VITALS: BP 128/78
[2021-09-23] MEDS: RisperiDONE 1 MG TABLET PO SCH (17:28)
[2021-09-23] MEDS: ZOLPIDEM TARTRATE 10 MG TABLET PO PRN (21:00)
[2021-09-24 00:42] VITALS: BP 130/82
[2021-09-24] MEDS: LORazepam 2 MG TABLET PO PRN ×2 (00:42→08:51)
[2021-09-24] MEDS: OLANZapine 5 MG RAPDIS TABLET PO PRN (00:42)
[2021-09-24] MEDS: NICOTINE 14 MG/24 HOUR PATCH TD SCH (08:23)
[2021-09-24] MEDS: RisperiDONE 1 MG TABLET PO SCH (08:23)
[2021-10-08] MEDS ORDERED: ARIP5TAB37 PO (14:27)
== END 2021-09-24 10:55 | disposition home or self-care (01) | DRG 750 ==
LOC: EMS 12:42 → 3EI 09-22 14:32
PROVIDERS: ADMIT Psychiatry & Neurology Child & Adolescent Psychiatry; ATTEND Psychiatry & Neurology Child & Adolescent Psychiatry
DX: F20.9 Schizophrenia, unspecified (principal); R45.851 Suicidal ideations; F10.10 Alcohol abuse, uncomplicated; D64.9 Anemia, unspecified; Z79.899 Other long term (current) drug therapy; Z87.891 Personal history of nicotine dependence; F14.90 Cocaine use, unspecified, uncomplicated; Z20.822 Contact with and (suspected) exposure to COVID-19
CPT/HCPCS: 80053; 80061; 81003; 84439; 84443; 85025; 99285; G0480; J1200; J1630; J2060

== ENCOUNTER 2021-09-27 17:48 | Emergency (ER) | payer MEDICAID ==
[~2021-09-27] VITALS: Ht 170.2 cm; Wt 62.0 kg
[~2021-09-27 17:48] MED LIST changes: -OLAN10TA74 PO
[2021-09-27 18:48] LABS: BASOPHILS % (AUTO) 1.2 % (0.0-2.0); EOSINOPHILS % (AUTO) 0.1 % (1.0-6.0); HEMATOCRIT 48.6 % (41-53); HEMOGLOBIN 16.1 g/dL (13.5-17.5); LYMPHOCYTES # (AUTO) 0.9 K/uL (1.0-4.8); LYMPHOCYTES % (AUTO) 18.8 % (22.0-44.0); MEAN CORPUSCULAR HEMOGLOBIN 27.9 pg (26.0-34.0); MEAN CORPUSCULAR HGB CONC 33.1 G/dL (31.0-37.0); MEAN CORPUSCULAR VOLUME 84 fL (80-100); MONOCYTES # (AUTO) 0.3 K/uL (0.1-1.0); MONOCYTES % (AUTO) 5.6 % (2.0-9.0); NEUTROPHILS # (AUTO) 3.4 K/uL (1.8-7.7); NEUTROPHILS % (AUTO) 74.3 % (40.0-70.0); PLATELET COUNT (AUTO) 243 K/uL (150-450); RED BLOOD CELL COUNT(AUTO) 5.77 MIL/uL (4.50-5.90)
[2021-09-27 19:00] LABS: ANION GAP 20 mmol/L (8-16); CALCIUM, TOTAL 9.9 mg/dL (8.8-10.5); CARBON DIOXIDE 18 mmol/L (22-29); CHLORIDE 96 mmol/L (98-107); CREATININE 0.98 mg/dL (0.60-1.30); GLOMERULAR FILTR. RATE CALC > 60 mL/min (>60); GLUCOSE,RANDOM 346 mg/dL (70-110); POTASSIUM 4.8 mmol/L (3.5-5.1); SODIUM SERUM 134 mmol/L (136-145); UREA NITROGEN, BLOOD 18 mg/dL (7-18)
[2021-09-27 19:05] LABS: ALANINE AMINOTRANSFERASE 61 U/L (12-78); ALBUMIN 2.9 g/dL (3.4-5.0); ALKALINE PHOSPHATASE 83 U/L (46-116); ASPARTATE AMINOTRANSFERASE 39 U/L (15-37); BILIRUBIN,TOTAL 0.7 mg/dL (0.1-1.0); TOTAL PROTEIN, SERUM 8.1 g/dL (6.4-8.2)
[2021-09-27] MEDS ORDERED: ARIPiprazole 5 MG TABLET PO ONE (19:45)
[2021-09-27 20:16] VITALS: BP 137/76
[2021-10-08] MEDS ORDERED: ARIP5TAB37 PO (14:27)
== END 2021-09-27 20:18 | disposition home or self-care (01) ==
LOC: EMS 17:53
DX: F25.9 Schizoaffective disorder, unspecified (principal); F41.9 Anxiety disorder, unspecified; F31.9 Bipolar disorder, unspecified; F17.210 Nicotine dependence, cigarettes, uncomplicated; F14.90 Cocaine use, unspecified, uncomplicated; F12.90 Cannabis use, unspecified, uncomplicated
CPT/HCPCS: 36415; 80053; 85025; 99284; G0480

== ENCOUNTER 2021-09-28 01:50 | Emergency (ER) | payer MEDICAID ==
[~2021-09-28] VITALS: Ht 170.2 cm; Wt 62.0 kg
[2021-09-28 02:20] LABS: BASOPHILS % (AUTO) 0.4 % (0.0-2.0); HEMATOCRIT 38.2 % (41-53); HEMOGLOBIN 12.7 g/dL (13.5-17.5); LYMPHOCYTES # (AUTO) 2.2 K/uL (1.0-4.8); LYMPHOCYTES % (AUTO) 28.3 % (22.0-44.0); MEAN CORPUSCULAR HEMOGLOBIN 28.8 pg (26.0-34.0); MEAN CORPUSCULAR HGB CONC 33.4 G/dL (31.0-37.0); MEAN CORPUSCULAR VOLUME 86 fL (80-100); MONOCYTES % (AUTO) 12.7 % (2.0-9.0); NEUTROPHILS # (AUTO) 4.5 K/uL (1.8-7.7); NEUTROPHILS % (AUTO) 57.6 % (40.0-70.0); PLATELET COUNT (AUTO) 267 K/uL (150-450); RED BLOOD CELL COUNT(AUTO) 4.43 MIL/uL (4.50-5.90); RED CELL DISTRIBUTION WIDTH 14.5 % (11.5-14.5)
[2021-09-28 02:26] VITALS: BP 120/71
[2021-09-28 02:29] LABS: ANION GAP 8 mmol/L (8-16); CARBON DIOXIDE 29 mmol/L (22-29); CHLORIDE 103 mmol/L (98-107); CREATININE 1.16 mg/dL (0.60-1.30); GLOMERULAR FILTR. RATE CALC > 60 mL/min (>60); GLUCOSE,RANDOM 127 mg/dL (70-110); POTASSIUM 3.8 mmol/L (3.5-5.1); SODIUM SERUM 140 mmol/L (136-145); UREA NITROGEN, BLOOD 18 mg/dL (7-18)
[2021-09-28 02:34] LABS: ALANINE AMINOTRANSFERASE 24 U/L (12-78); ALBUMIN 3.6 g/dL (3.4-5.0); ALKALINE PHOSPHATASE 54 U/L (46-116); ASPARTATE AMINOTRANSFERASE 15 U/L (15-37); BILIRUBIN,TOTAL 0.2 mg/dL (0.1-1.0); TOTAL PROTEIN, SERUM 7.1 g/dL (6.4-8.2)
[2021-09-28 02:40] LABS: COVID AG,FIA SOURCE NASAL SWAB
[2021-10-08] MEDS ORDERED: ARIP5TAB37 PO (14:27)
== END 2021-09-28 05:45 | disposition left against medical advice (07) ==
LOC: EMS 01:51
DX: R44.0 Auditory hallucinations (principal); Z53.21 Procedure and treatment not carried out due to patient leaving prior to being seen by health care provider
CPT/HCPCS: 36415; 80053; 85025; 87426; G0480

== ENCOUNTER 2021-10-03 13:03 | Emergency (ER) | payer MEDICAID ==
[~2021-10-03] VITALS: Ht 172.7 cm; Wt 62.7 kg
[2021-10-03 14:04] LABS: BASOPHILS % (AUTO) 0.2 % (0.0-2.0); EOSINOPHILS % (AUTO) 0.9 % (1.0-6.0); HEMATOCRIT 36.5 % (41-53); HEMOGLOBIN 12.3 g/dL (13.5-17.5); LYMPHOCYTES # (AUTO) 1.4 K/uL (1.0-4.8); LYMPHOCYTES % (AUTO) 25.3 % (22.0-44.0); MEAN CORPUSCULAR HEMOGLOBIN 29.1 pg (26.0-34.0); MEAN CORPUSCULAR HGB CONC 33.7 G/dL (31.0-37.0); MEAN CORPUSCULAR VOLUME 87 fL (80-100); MONOCYTES # (AUTO) 0.7 K/uL (0.1-1.0); MONOCYTES % (AUTO) 12.2 % (2.0-9.0); NEUTROPHILS # (AUTO) 3.5 K/uL (1.8-7.7); NEUTROPHILS % (AUTO) 61.4 % (40.0-70.0); PLATELET COUNT (AUTO) 262 K/uL (150-450); RED BLOOD CELL COUNT(AUTO) 4.21 MIL/uL (4.50-5.90)
[2021-10-03 14:18] LABS: ANION GAP 11 mmol/L (8-16); CALCIUM, TOTAL 8.8 mg/dL (8.8-10.5); CARBON DIOXIDE 27 mmol/L (22-29); CHLORIDE 107 mmol/L (98-107); CREATININE 0.94 mg/dL (0.60-1.30); GLOMERULAR FILTR. RATE CALC > 60 mL/min (>60); GLUCOSE,RANDOM 103 mg/dL (70-110); POTASSIUM 4.6 mmol/L (3.5-5.1); SODIUM SERUM 145 mmol/L (136-145); UREA NITROGEN, BLOOD 17 mg/dL (7-18)
[2021-10-03 14:20] LABS: COVID AG,FIA SOURCE NASOPHARYNGEAL
[2021-10-03 14:22] LABS: ALANINE AMINOTRANSFERASE 21 U/L (12-78); ALBUMIN 3.4 g/dL (3.4-5.0); ALKALINE PHOSPHATASE 49 U/L (46-116); ASPARTATE AMINOTRANSFERASE 16 U/L (15-37); BILIRUBIN,TOTAL 0.4 mg/dL (0.1-1.0); TOTAL PROTEIN, SERUM 6.9 g/dL (6.4-8.2)
[2021-10-03 14:30] LABS: AMPHET/METH SCREEN,URINE NEGATIVE (NEGATIVE); BARBITURATE SCREEN, URINE NEGATIVE (NEGATIVE); BENZODIAZEPINES SCREEN,URINE NEGATIVE (NEGATIVE); CANNABINOID SCREEN,URINE POSITIVE (NEGATIVE); COCAINE SCREEN,URINE NEGATIVE (NEGATIVE); METHADONE SCREEN, URINE NEGATIVE (NEGATIVE); OPIATE SCREEN,URINE NEGATIVE (NEGATIVE)
[2021-10-03 14:34] LABS: PHENCYCLIDINE SCREEN,URINE NEGATIVE (NEGATIVE)
[2021-10-03 15:54] VITALS: BP 108/101
[2021-10-08] MEDS ORDERED: ARIP5TAB37 PO (14:27)
== END 2021-10-03 17:04 | disposition home or self-care (01) ==
LOC: EMS 13:51
DX: F41.9 Anxiety disorder, unspecified (principal); F32.9 Major depressive disorder, single episode, unspecified; F12.90 Cannabis use, unspecified, uncomplicated; F14.90 Cocaine use, unspecified, uncomplicated; F17.210 Nicotine dependence, cigarettes, uncomplicated; Z20.822 Contact with and (suspected) exposure to COVID-19
CPT/HCPCS: 36415; 80053; 80307; 85025; 87426; 99283; G0480

== ENCOUNTER 2021-10-09 12:59 | Inpatient (IN) | payer MEDICAID ==
[~2021-10-09] VITALS: Ht 172.7 cm; Wt 63.5 kg
[~2021-10-09 12:59] MED LIST changes: +ARIP5TAB37 PO
[2021-10-09] MEDS ORDERED: HALOPERIDOL LACTATE 5 MG/ML VIAL IM ONE (14:45)
[2021-10-09] MEDS ORDERED: LORazepam 2 MG/ML VIAL IM ONE (14:45)
[2021-10-09] MEDS ORDERED: DiphenhydrAMINE HCL 50 MG/ML VIAL IM ONE (14:45)
[2021-10-09 14:50] LABS: BASOPHILS % (AUTO) 0.3 % (0.0-2.0); EOSINOPHILS % (AUTO) 0.3 % (1.0-6.0); HEMATOCRIT 39.2 % (41-53); LYMPHOCYTES # (AUTO) 1.2 K/uL (1.0-4.8); LYMPHOCYTES % (AUTO) 15.8 % (22.0-44.0); MEAN CORPUSCULAR HEMOGLOBIN 28.9 pg (26.0-34.0); MEAN CORPUSCULAR HGB CONC 33.3 G/dL (31.0-37.0); MEAN CORPUSCULAR VOLUME 87 fL (80-100); MONOCYTES # (AUTO) 0.8 K/uL (0.1-1.0); MONOCYTES % (AUTO) 9.9 % (2.0-9.0); NEUTROPHILS # (AUTO) 5.7 K/uL (1.8-7.7); NEUTROPHILS % (AUTO) 73.7 % (40.0-70.0); PLATELET COUNT (AUTO) 305 K/uL (150-450); RED BLOOD CELL COUNT(AUTO) 4.51 MIL/uL (4.50-5.90); RED CELL DISTRIBUTION WIDTH 15.3 % (11.5-14.5)
[2021-10-09 15:00] LABS: ANION GAP 8 mmol/L (8-16); CALCIUM, TOTAL 9.2 mg/dL (8.8-10.5); CARBON DIOXIDE 29 mmol/L (22-29); CHLORIDE 104 mmol/L (98-107); CREATININE 0.83 mg/dL (0.60-1.30); GLOMERULAR FILTR. RATE CALC > 60 mL/min (>60); GLUCOSE,RANDOM 110 mg/dL (70-110); SODIUM SERUM 141 mmol/L (136-145); UREA NITROGEN, BLOOD 14 mg/dL (7-18)
[2021-10-09 15:06] LABS: ALANINE AMINOTRANSFERASE 34 U/L (12-78); ALBUMIN 3.8 g/dL (3.4-5.0); ALKALINE PHOSPHATASE 49 U/L (46-116); ASPARTATE AMINOTRANSFERASE 30 U/L (15-37); BILIRUBIN,TOTAL 0.2 mg/dL (0.1-1.0); TOTAL PROTEIN, SERUM 7.5 g/dL (6.4-8.2)
[2021-10-09 15:59] LABS: COVID AG,FIA SOURCE NASOPHARYNGEAL
[2021-10-09] MEDS: ZOLPIDEM TARTRATE 10 MG TABLET PO PRN (21:51)
[2021-10-09 22:31] VITALS: BP 117/70
[2021-10-09 22:36] VITALS: BP 117/70
[2021-10-09] MEDS ORDERED: INFLUENZA VIRUS VACCINE QVS 2021-22 (6MO+)/PF 60 MCG/0.5 ML SYRINGE IM. ONE (23:00)
[2021-10-10 00:25] VITALS: BP 115/64
[2021-10-10] MEDS: LORazepam 2 MG TABLET PO PRN ×2 (06:51→13:46)
[2021-10-10] MEDS: HALOPERIDOL 5 MG TABLET PO PRN ×2 (06:51→13:46)
[2021-10-10 08:47] LABS: CHOL/HDL RATIO 2.6 (4.2-7.3); FREE T4 (FREE THYROXINE) 0.79 ng/dL (0.76-1.46); THYROID STIMULATING HORMONE 1.31 uIU/mL (0.36-3.74)
[2021-10-10] MEDS ORDERED: ARIPiprazole LAUROXIL ER SUSPENSION 882 MG/3.2 ML SYRINGE IM ONE (10:00)
[2021-10-10] MEDS ORDERED: ARIPiprazole LAUROXIL,SUBMICR. ER SUSPENSION 675 MG/2.4 ML SYRINGE IM ONE (10:00)
[2021-10-10] MEDS: ARIPiprazole 10 MG TABLET PO SCH (10:32)
[2021-10-10 10:35] VITALS: BP 102/60
[2021-10-10 16:18] VITALS: BP 113/88
[2021-10-10] MEDS: ZOLPIDEM TARTRATE 10 MG TABLET PO PRN (20:45)
[2021-10-11] MEDS: HALOPERIDOL 5 MG TABLET PO PRN ×2 (03:34→17:03)
[2021-10-11] MEDS: LORazepam 2 MG TABLET PO PRN ×4 (03:34→20:10)
[2021-10-11 06:03] VITALS: BP 118/72
[2021-10-11] MEDS: ARIPiprazole 10 MG TABLET PO SCH (08:56)
[2021-10-11 09:59] VITALS: BP 118/64
[2021-10-11 16:16] VITALS: BP 103/60
[2021-10-11] MEDS: ZOLPIDEM TARTRATE 10 MG TABLET PO PRN (21:25)
[2021-10-12 01:53] VITALS: BP 116/65
[2021-10-12] MEDS: LORazepam 2 MG TABLET PO PRN (07:48)
[2021-10-12] MEDS: ARIPiprazole 10 MG TABLET PO SCH (08:01)
[2021-10-12 08:22] VITALS: BP 120/64
[2021-10-12] MEDS ORDERED: ARIP10TA38 PO ×2 (08:39→09:39)
[2021-10-14] MEDS ORDERED: ARIPiprazole LAUROXIL ER SUSPENSION 882 MG/3.2 ML SYRINGE IM SCH (09:00)
[2021-10-14] MEDS ORDERED: ARIPiprazole LAUROXIL,SUBMICR. ER SUSPENSION 675 MG/2.4 ML SYRINGE IM ONE (09:00)
[2021-11-09] MEDS ORDERED: ARIPiprazole LAUROXIL ER SUSPENSION 882 MG/3.2 ML SYRINGE IM SCH (09:00)
== END 2021-10-12 14:24 | disposition home or self-care (01) | DRG 750 ==
LOC: EMS 13:05 → UNDOADMIN 16:00 → B3A 16:00
PROVIDERS: ADMIT Psychiatry & Neurology Child & Adolescent Psychiatry; ATTEND Psychiatry & Neurology Child & Adolescent Psychiatry
DX: F25.0 Schizoaffective disorder, bipolar type (principal); R45.850 Homicidal ideations; R45.851 Suicidal ideations; F17.210 Nicotine dependence, cigarettes, uncomplicated; Z20.822 Contact with and (suspected) exposure to COVID-19; Z78.1 Physical restraint status
CPT/HCPCS: 80053; 80061; 84439; 84443; 85025; 87081; 99285; G0480; J1200; J1630; J2060; Q9967

== ENCOUNTER 2021-10-19 18:24 | Inpatient (IN) | payer MEDICAID ==
[~2021-10-19] VITALS: Ht 172.7 cm; Wt 144.9 kg
[~2021-10-19 18:24] MED LIST changes: +ARIP10TA38 PO; -ARIP5TAB37 PO; -RISP1TAB48 PO
[2021-10-19] MEDS ORDERED: DiphenhydrAMINE HCL 50 MG/ML VIAL IM ONE (19:15)
[2021-10-19] MEDS ORDERED: LORazepam 2 MG/ML VIAL IM ONE (19:15)
[2021-10-19] MEDS ORDERED: HALOPERIDOL LACTATE 5 MG/ML VIAL IM ONE (19:15)
[2021-10-19 19:26] LABS: BASOPHILS % (AUTO) 0.6 % (0.0-2.0); EOSINOPHILS % (AUTO) 1.6 % (1.0-6.0); HEMOGLOBIN 13.1 g/dL (13.5-17.5); LYMPHOCYTES # (AUTO) 1.6 K/uL (1.0-4.8); MEAN CORPUSCULAR HEMOGLOBIN 28.9 pg (26.0-34.0); MEAN CORPUSCULAR HGB CONC 33.5 G/dL (31.0-37.0); MEAN CORPUSCULAR VOLUME 86 fL (80-100); MONOCYTES # (AUTO) 0.7 K/uL (0.1-1.0); NEUTROPHILS # (AUTO) 4.5 K/uL (1.8-7.7); NEUTROPHILS % (AUTO) 64.8 % (40.0-70.0); PLATELET COUNT (AUTO) 306 K/uL (150-450); RED BLOOD CELL COUNT(AUTO) 4.52 MIL/uL (4.50-5.90); RED CELL DISTRIBUTION WIDTH 15.7 % (11.5-14.5)
[2021-10-19 19:34] LABS: ANION GAP 8 mmol/L (8-16); CALCIUM, TOTAL 9.3 mg/dL (8.8-10.5); CARBON DIOXIDE 30 mmol/L (22-29); CHLORIDE 104 mmol/L (98-107); GLOMERULAR FILTR. RATE CALC > 60 mL/min (>60); GLUCOSE,RANDOM 110 mg/dL (70-110); POTASSIUM 4.1 mmol/L (3.5-5.1); SODIUM SERUM 142 mmol/L (136-145); UREA NITROGEN, BLOOD 15 mg/dL (7-18)
[2021-10-19 19:40] LABS: ALANINE AMINOTRANSFERASE 64 U/L (12-78); ALBUMIN 3.9 g/dL (3.4-5.0); ALKALINE PHOSPHATASE 46 U/L (46-116); ASPARTATE AMINOTRANSFERASE 29 U/L (15-37); BILIRUBIN,TOTAL 0.1 mg/dL (0.1-1.0); TOTAL PROTEIN, SERUM 7.8 g/dL (6.4-8.2)
[2021-10-19] MEDS ORDERED: QUEtiapine FUMARATE 100 MG TABLET PO PRN (20:30)
[2021-10-20 00:50] LABS: COVID AG,FIA SOURCE NASAL SWAB
[2021-10-20 03:19] LABS: CHOL/HDL RATIO 2.6 (4.2-7.3); CHOLESTEROL 191 mg/dL (131-200); HDL CHOLESTEROL 74 mg/dL (40-60); LDL CHOL (CALC.) 96 mg/dL (0-130); TRIGLYCERIDES 105 mg/dL (15-150)
[2021-10-20] MEDS: LORazepam 2 MG TABLET PO PRN ×2 (10:05→14:34)
[2021-10-20] MEDS ORDERED: NICOTINE 14 MG/24 HOUR PATCH TD ONE (14:45)
[2021-10-20 14:53] LABS: APPEARANCE,URINE CLOUDY (CLEAR); BILIRUBIN,URINE NEGATIVE (NEGATIVE); GLUCOSE, URINE (UA) NEGATIVE (NEGATIVE); KETONES,URINE NEGATIVE (NEGATIVE); LEUKOCYTE ESTERASE ,URINE NEGATIVE (NEGATIVE); NITRATE,URINE NEGATIVE (NEGATIVE); OCCULT BLOOD,URINE NEGATIVE (NEGATIVE); PROTEIN,URINE NEGATIVE (NEGATIVE)
[2021-10-20 14:57] LABS: AMPHET/METH SCREEN,URINE NEGATIVE (NEGATIVE); BARBITURATE SCREEN, URINE NEGATIVE (NEGATIVE); BENZODIAZEPINES SCREEN,URINE NEGATIVE (NEGATIVE); CANNABINOID SCREEN,URINE NEGATIVE (NEGATIVE); COCAINE SCREEN,URINE NEGATIVE (NEGATIVE); METHADONE SCREEN, URINE NEGATIVE (NEGATIVE); OPIATE SCREEN,URINE NEGATIVE (NEGATIVE); PHENCYCLIDINE SCREEN,URINE NEGATIVE (NEGATIVE)
[2021-10-20 20:42] VITALS: BP 133/73
[2021-10-20] MEDS: ZOLPIDEM TARTRATE 10 MG TABLET PO PRN (20:50)
[2021-10-21 01:12] VITALS: BP 129/67
[2021-10-21 08:19] VITALS: BP 145/78
[2021-10-21] MEDS: LORazepam 2 MG TABLET PO PRN ×2 (09:45→15:10)
[2021-10-21] MEDS: ARIPiprazole 10 MG TABLET PO SCH ×2 (12:17→17:18)
[2021-10-21 16:21] VITALS: BP 111/70
[2021-10-21] MEDS: ZOLPIDEM TARTRATE 10 MG TABLET PO PRN (20:38)
[2021-10-22 04:20] VITALS: BP 117/61
[2021-10-22 08:20] VITALS: BP 125/71
[2021-10-22] MEDS: ARIPiprazole 10 MG TABLET PO SCH ×2 (09:03→16:30)
[2021-10-22] MEDS: LORazepam 2 MG TABLET PO PRN ×2 (09:54→16:38)
[2021-10-22 16:20] VITALS: BP 102/65
[2021-10-23 00:47] VITALS: BP 109/63
[2021-10-23] MEDS: ARIPiprazole 10 MG TABLET PO SCH (08:48)
[2021-10-23] MEDS ORDERED: ARIP10TA38 PO (09:06)
[2021-10-23] MEDS: LORazepam 2 MG TABLET PO PRN (09:25)
[2021-10-23 09:50] VITALS: BP 113/65
== END 2021-10-23 12:15 | disposition home or self-care (01) | DRG 750 ==
LOC: EMS 18:25 → B2S 10-20 14:44
PROVIDERS: ADMIT Psychiatry & Neurology Psychiatry; ATTEND Psychiatry & Neurology Psychiatry
DX: F20.0 Paranoid schizophrenia (principal); R45.851 Suicidal ideations; F10.10 Alcohol abuse, uncomplicated; F14.90 Cocaine use, unspecified, uncomplicated; F32.A Depression, unspecified; F41.9 Anxiety disorder, unspecified; F90.9 Attention-deficit hyperactivity disorder, unspecified type; D64.9 Anemia, unspecified; Z79.899 Other long term (current) drug therapy; Z87.891 Personal history of nicotine dependence; Z20.822 Contact with and (suspected) exposure to COVID-19
CPT/HCPCS: 80053; 80061; 81003; 85025; 87081; 99285; G0480; J1200; J1630; J2060